=== PATIENT | male | born 1935 | race Caucasian/White ===

== ENCOUNTER 2017-09-07 16:17 | Inpatient (IN) ==
--- NOTE | 2017-09-07 22:41 | Internal Med History&Physical ---
<Brendan Mas - Last Filed: 09/08/17 00:29> Date of Encounter: 09/08/17 Time of Encounter: 08:00 Internal Medicine - H&P: HPI Chief complaint: R lower back pain Admitted From: Home Plans for Post Hospital Care: Home History of present illness: Mr. Sanders is a 81 year old male w/ pmh of CAD - CABG 2009, [place], [place], afib on coumadin, blood clots presents with 5/10 aching pain that starts on his right iliac crest and radiates to his paraspinal lumbar region. On 08/17/2016 patient was setting up a grill when he felt like he may have twisted his back. He woke up the next morning with this aching pain. Pain is relieved with 2 tylenol at a time. Pain is positionally relieved by laying his left side, and extension of his lumbar. Pain is worsened with flexion and standing, and palpation. Patient has had similar pain previously when he has pulled muscles. 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 Patient is more concerned that the day this pain started patient had gross blood in his urine. He went to the ED and was given 'something for bladder infection" which resolved blood in his urine, but he's had occassional darkening of his urine and "bubbles". Patient does admit that he's been unable to control his urine for awhile. He sleeps wtih jars nex to his bed to urinate in, and a lot of times he urinates without knowing it. Patient denies confusion , chest pain, sob, lower edema swelling, mid back pain, saddle anesthesia, numbness or tingling in lower extremities. Past Med Surg Social Fam HX - Past Medical History Medical history: atrial fibrillation, cancer, coronary artery disease, DVT, diabetes, hyperlipidemia, hypertension, kidney stones, syncope, TIA, other Psychiatric history: no psych history - Past Surgical History Surgical History: coronary bypass (CABG), herniorrhaphy, other - Social History Smoking Status: Former smoker Smokeless Tobacco Status: Yes (occasional "snuff") Alcohol use: none Drug use: none - Family History Mother Living Status: Hx Family Cardiac Disorders: Yes ([place]) Internal Medicine - H&P: Meds Allopurinol [Zyloprim 100 MG] 100 mg PO DAILY 09/07/17 [History] Aspirin [Lo-Dose Aspirin EC] 81 mg PO DAILY 09/07/17 [History] Atorvastatin Calcium [Lipitor] 10 mg PO HS 09/07/17 [History] Betamethasone Carmenza 0.1% Crm [Valisone 0.1%] 1 appl TP QMWF 09/07/17 [History] Cholecalciferol (D-3) [Vitamin D] 1,000 unit PO DAILY 09/07/17 [History] Diclofenac Sodium 4 gm TP BID PRN 09/07/17 [History] Finasteride [Proscar] 5 mg PO DAILY 09/07/17 [History] Naproxen Sodium [Aleve] 220 mg PO BID 09/07/17 [History] Nitroglycerin [Nitrostat] 0.4 mg SL PER PKG DI PRN 09/07/17 [History] Warfarin Sodium 1 mg PO PER PKG DI 09/07/17 [History] 3 Allergy/AdvReac Type Severity Reaction Status Date / Time Penicillins Allergy Rash Verified 09/07/17 13:52 All Systems PM: A 10-system review of systems was performed and is negative for pertinent findings except as documented above in the HPI. - Constitutional Constitutional: no chills, no fever(s), no falls, no lethargy, no malaise, no night sweats, no weakness, no weight gain, no weight loss - EENT Eyes: no change in vision, no discharge, no pain, no photophobia Ears: no ear discharge, no ear pain, no tinnitus Nose, mouth and throat: no dysphagia, no nasal discharge, no neck pain, no sore throat - Cardiovascular Cardiovascular ROS IM: no chest pain, no claudication, no diaphoresis, no dyspnea, no dyspnea on exertion, no edema, no irregular heart rhythm, no lightheadedness, no orthopnea, no palpitations, no paroxysmal nocturnal dyspnea , no syncope - Respiratory Respiratory: no cough, no dyspnea, no hemoptysis, no dyspnea on exertion, no wheezing, no pain on inspiration, no chest congestion, no excessive phlegm production, no change in phlegm color, no pain with cough - Gastrointestinal Gastrointestinal: no abdominal pain, no belching, no bloating, no change in bowel habits, no change in stool character, no coffee ground emesis, no constipation, no cramping, no diarrhea, no dyspepsia, no dysphagia, no hematemesis, no hematochezia, no melena, no nausea, no vomiting - Genitourinary Genitourinary ROS male: dysuria, hematuria, urinary frequency, urinary incontinence, no difficulty urinating, no flank pain, no genital lesions, no genital pain, no scrotal swelling, no testicular mass - Musculoskeletal Musculoskeletal ROS IM: no numbness, no tingling - Integumentary Integumentary IM: no rash, no unusual bruising - Neurological Neurological ROS: no confusion, no convulsions, no focal weakness, no numbness, no tingling, no tremor(s) - Hematologic/Lymphatic Hematologic/Lymphatic: no easy bruising - Constitutional Vitals: Temp Pulse Resp BP Pulse Ox 97.9 F 71 17 110/66 95 09/07/17 22:00 09/07/17 22:00 09/07/17 22:00 09/07/17 22:00 09/07/17 22:00 General appearance: Present: A&O X 3, pleasant, no acute distress, answers questions appropriately Exam: hard of hearing - Head Head exam: Present: atraumatic, normocephalic - Eye Eye exam: Present: PERRL, conjuntiva pink, sclera anicteric Pupils: Present: PERRL - Neck Neck exam general surgery: Present: supple, trachea midline. Absent: lymphadenopathy - Respiratory Respiratory exam: Present: CTAB. Absent: accessory muscle use, rales, rhonchi, wheezes - Cardiovascular Cardiovascular exam: Present: RRR. Absent: diastolic murmur, distant heart sounds, gallop, irregular rhythm, rubs, systolic murmur - GI/Abdominal GI/Abdominal exam: Present: normal bowel sounds, soft, no peritoneal signs. Absent: distended, firm, guarding, hernia, hepatomegaly, hyperactive bowel sounds, hypoactive bowel sounds, pulsatile mass, rebound, rigid, splenomegaly, tenderness - Extremities Exam Extremities exam: Present: warm, radial pulses palpable and symmetrical. Absent : calf tenderness, cyanotic, pedal edema - Back Exam Back exam: Present: paraspinal tenderness. Absent: CVA tenderness (L), CVA tenderness (R) Additional comments: straight leg raise negative - Neurological Exam Neurological exam: Present: CN II-XII intact, oriented X3, no focal deficits. Absent: pronater drift, facial droop, speech deficit - Skin Skin exam: Present: dry, intact Internal Med - H&P Results - Labs CBC & Chem 7: 09/07/17 23:08 09/07/17 23:08 - Assessment and plan (1) Strain of lumbar region Current Visit: Yes Status: Inactive Assessment and plan: Most likely due to strained paraspinal muscle. Patient does have urinary incontinence but this is chronic, patient does not have numbness or tingling saddle or lower extremities. very unlikely cauda equina. CT was taken in ED which showed endplate deformities involving L4 and L5, and inferior endplate deformity at L1. Patient showed me paperwork from previous hospitalization at [facility] which had a CT that reported the same finding. ED consulted dr. márquez. - tylenol for pain control - inhaled calcitonin for treatment of vertebral compression fractures not available through [email or web address]; discuss with pharmacy in the AM Qualifiers: Encounter type: initial encounter Qualified Code(s): S39.012A - Strain of muscle, fascia and tendon of lower back, initial encounter (2) Urinary incontinence Current Visit: Yes Status: Acute Assessment and plan: Ordered U/A, will further workup. Qualifiers: Qualified Code(s): R32 - Unspecified urinary incontinence (3) Afib Current Visit: Yes Status: Acute Assessment and plan: chronic afib, currently controlled. Patient is not on rate or rhythm control. Patient is anticoagulated, INR is therapeutic at 2.3 Qualifiers: Qualified Code(s): I48.2 - Chronic atrial fibrillation (4) Hyperlipidemia Current Visit: Yes Status: Acute Assessment and plan: controlled, continue home statin Qualifiers: Qualified Code(s): E78.5 - Hyperlipidemia, unspecified (5) Gout Current Visit: Yes Status: Acute Assessment and plan: continue home Rx Qualifiers: Qualified Code(s): M10.9 - Gout, unspecified (6) CAD (coronary artery disease) Current Visit: Yes Status: Acute Assessment and plan: Per chart review patient had CABG in 2009. Qualifiers: Qualified Code(s): I25.10 - Atherosclerotic heart disease of [place] coronary artery without angina pectoris (7) Goals of care, counseling/discussion Current Visit: Yes Status: Acute Assessment and plan: Discussed goals of care with patient. Patient states that he clearly understands that he does not want aggressive treatment in the setting of cardiac arrest or respiratory failure. Code status changed to DNR/DNI/CCA - Time Spent With Patient Total time spent is greater than 50% in coordination of care (as documented) at patient's floor/unit and/or counseling patient: <Abundio Galvan P - Last Filed: 09/08/17 07:59> Date of Encounter: 09/07/17 Time of Encounter: 23:00 Internal Medicine - H&P: HPI History of present illness: Mr. Sanders is a 81 year old male All Systems PM: A 10-system review of systems was performed and is negative for pertinent findings except as documented above in the HPI. - Constitutional Vitals: Temp Pulse Resp BP Pulse Ox 97.9 F 71 17 110/66 95 09/07/17 22:00 09/07/17 22:00 09/07/17 22:00 09/07/17 22:00 09/07/17 22:00 Internal Med - H&P Results - Labs CBC & Chem 7: 09/08/17 07:07 09/08/17 07:07 Labs: Short CBC 09/07/17 09/08/17 Range/Units 23:08 07:07 WBC 6.2 7.5 (4.3-11.1) K/mcL Hgb 16.5 16.9 (12.9-16.9) g/dL Hct 46.6 48.1 (37.5-50.1) % Plt Count 141 159 (140-400) K/mcL Neutrophils # 3.9 4.5 (1.6-8.9) K/mcL BMP 09/07/17 09/08/17 23:08 07:07 Sodium 138 143 Potassium 4.1 4.5 Chloride 106 109 H Carbon Dioxide 26 25 BUN 13 15 Creatinine 0.83 0.91 Glucose 99 113 H Calcium 9.1 9.3 Liver Function 09/07/17 Range/Units 23:08 Total Bilirubin 1.3 H (0.3-1.0) mg/dL AST 14 (13-39) Units/L ALT 11 (7-52) Units/L Alkaline Phosphatase 98 (34-104) Units/L Albumin 3.7 (3.5-5.7) g/dL - Attending Attestation I performed a history and physical examination of the patient on 09/07/17 and discussed his management with the resident. I reviewed the residents note and agree with the documented findings and plan of care. Briefly, patient admitted as transfer from [place] for lumbar pain secondary to lumbar strain vs lumbar compression fracture. Orthopedic surgeon Dr. Márquez has been consulted and he recommends pain control and lumbar MRI. He is not in any distress. We will use tylenol for pain and consider intranasal calcitonin if compression fracture. We will make NPO after midnight if ortho wants to operate. - Assessment and plan (1) Strain of lumbar region Current Visit: Yes Status: Inactive Qualifiers: Encounter type: initial encounter Qualified Code(s): S39.012A - Strain of muscle, fascia and tendon of lower back, initial encounter (2) Urinary incontinence Current Visit: Yes Status: Acute Qualifiers: Qualified Code(s): R32 - Unspecified urinary incontinence (3) Afib Current Visit: Yes Status: Acute Qualifiers: Qualified Code(s): I48.2 - Chronic atrial fibrillation (4) Hyperlipidemia Current Visit: Yes Status: Acute Qualifiers: Qualified Code(s): E78.5 - Hyperlipidemia, unspecified (5) Gout Current Visit: Yes Status: Acute Qualifiers: Qualified Code(s): M10.9 - Gout, unspecified (6) CAD (coronary artery disease) Current Visit: Yes Status: Acute Qualifiers: Qualified Code(s): I25.10 - Atherosclerotic heart disease of [place] coronary artery without angina pectoris (7) Goals of care, counseling/discussion Current Visit: Yes Status: Acute - Time Spent With Patient Total time spent is greater than 50% in coordination of care (as documented) at patient's floor/unit and/or counseling patient:
[2017-09-07 23:23] LABS: Basophils % 0.3 %; Eosinophils # 0.2 K/mcL (0.0-0.6); Eosinophils % 3.4 %; Hematocrit 46.6 % (37.5-50.1); Hemoglobin 16.5 g/dL (12.9-16.9); Immature Granulocytes % 0.3 % (0-4); Lymphocytes # 1.7 K/mcL (0.6-4.6); Lymphocytes % 26.9 %; Mean Corpuscular HGB Conc 35.4 g/dL (31.6-35.5); Mean Corpuscular Hemoglobin 33.1 pg (28.0-33.3); Mean Corpuscular Volume 93.6 fL (83.0-100.0); Mean Platelet Volume 9.7 fL (9.4-12.4); Monocytes # 0.4 K/mcL (0.0-1.3); Monocytes % 6.3 %; Neutrophils # 3.9 K/mcL (1.6-8.9); Platelet Count 141 K/mcL (140-400); Red Blood Count 4.98 M/mcL (4.19-5.50); Segmented Neutrophils % 62.8 %
[2017-09-07 23:42] LABS: Alanine Aminotransferase 11 Units/L (7-52); Albumin 3.7 g/dL (3.5-5.7); Albumin/Globulin Ratio 1.2 (1.1-2.2); Alkaline Phosphatase 98 Units/L (34-104); Aspartate Amino Transferase 14 Units/L (13-39); BUN/Creatinine Ratio 16 (6-26); Bilirubin,Total 1.3 mg/dL (0.3-1.0); Blood Urea Nitrogen 13 mg/dL (8-23); Calcium 9.1 mg/dL (8.6-10.3); Carbon Dioxide 26 mEq/L (23-29); Chloride 106 mEq/L (98-107); Globulin 3.1 g/dL (2.4-3.5); Glucose 99 mg/dL (70-105); Osmolality,Calculated 286 (280-300); Potassium 4.1 mEq/L (3.5-5.1); Sodium 138 mEq/L (136-145); Total Protein 6.8 g/dL (6.4-8.9); eGFR For African Americans > 60 (> 60); eGFR For Non-African Americans > 60 (> 60)
[2017-09-08] MEDS ORDERED: Gadolinium Contrast Agent (WT Based) IV PRN (04:29)
[2017-09-08] MEDS: Acetaminophen 325 MG TABLET PO PRN (04:48)
[2017-09-08] MEDS ORDERED: Nitroglycerin 0.4 MG TAB.SUBL SL PRN ×2 (06:38→07:52)
[2017-09-08] MEDS ORDERED: Naloxone 0.4 MG/ML INJ IVP PRN (06:43)
[2017-09-08 07:27] LABS: Basophils % 0.4 %; Eosinophils # 0.3 K/mcL (0.0-0.6); Hematocrit 48.1 % (37.5-50.1); Hemoglobin 16.9 g/dL (12.9-16.9); Immature Granulocytes % 0.3 % (0-4); Lymphocytes % 27.2 %; Mean Corpuscular HGB Conc 35.1 g/dL (31.6-35.5); Mean Corpuscular Hemoglobin 33.1 pg (28.0-33.3); Mean Corpuscular Volume 94.1 fL (83.0-100.0); Mean Platelet Volume 9.8 fL (9.4-12.4); Monocytes # 0.5 K/mcL (0.0-1.3); Monocytes % 7.1 %; Neutrophils # 4.5 K/mcL (1.6-8.9); Platelet Count 159 K/mcL (140-400); Red Blood Count 5.11 M/mcL (4.19-5.50)
[2017-09-08 07:33] LABS: INR 2.5
[2017-09-08 07:36] LABS: Activated Partial Thrombo Time 37.8 Seconds (26.0-36.0)
[2017-09-08 07:47] LABS: BUN/Creatinine Ratio 16 (6-26); Blood Urea Nitrogen 15 mg/dL (8-23); Calcium 9.3 mg/dL (8.6-10.3); Carbon Dioxide 25 mEq/L (23-29); Chloride 109 mEq/L (98-107); Glucose 113 mg/dL (70-105); Osmolality,Calculated 298 (280-300); Potassium 4.5 mEq/L (3.5-5.1); Sodium 143 mEq/L (136-145); eGFR For African Americans > 60 (> 60); eGFR For Non-African Americans > 60 (> 60)
[2017-09-08] MEDS: Aspirin Enteric Coated 81 MG Tablet PO SCH (11:16)
[2017-09-08] MEDS: Cholecalciferol (D-3) 1,000 UNIT TABLET PO SCH (11:16)
[2017-09-08] MEDS: Finasteride 5 MG TABLET PO SCH (11:16)
[2017-09-08] MEDS: Triamcinolone Acet 0.1% CRM 15 GM TUBE TP SCH ×3 (11:17→21:51)
[2017-09-08] MEDS: *HR* OxyCODONE/APAP 5/325 TABLET PO PRN ×2 (15:32→21:49)
[2017-09-08] MEDS: *HR* Warfarin 2 MG TABLET PO ONE ×2 (17:09→19:42)
--- NOTE | 2017-09-08 17:20 | Spinal Consult Note ---
Date of Encounter: 09/08/17 Time of Encounter: 17:18 Assessment and Plan (1) Osteopenia Current Visit: Yes Status: Chronic Qualifiers: Osteopenia location: spine Qualified Code(s): M85.88 - Other specified disorders of bone density and structure, other site (2) Vertebral compression fracture Current Visit: Yes Status: Acute On exam he is in moderate distress secondary to back pain worsened with movement. Afebrile vital signs stable. He has tenderness to palpation over the distal lumbar spine. He is neurovascularly intact with regard to his bilateral lower extremities. He has no clonus. His hips move symmetrically. He has limitation with forward flexion and extension of the lumbar spine which reproduces pain. Is no clubbing cyanosis or edema. MRI of the lumbar spine reveals acute vertebral compression fractures at L1, L4 , and L5. The L4 and L5 fractures mostly above the superior endplate. There are multilevel degenerative changes. Impression: 1) osteopenia 2) vertebral compression fractures L1, L4, L5. Plan: I had a long discussion with the patient. We discussed continued nonoperative treatment with bracing and or analgesics. We also discussed vertebral augmentation in the form of a kyphoplasty. The patient would like to proceed with kyphoplasty L1, L4, L5. He understands he will need medical optimization and clearance prior to any surgical intervention. He has a history of coronary artery bypass graft and is on blood thinners (Coumadin). He will need to get his INR more normalized as well as medical clearance prior to surgical intervention which we will plan for 09/10/2017. Risks benefits possible competitions and alternatives were fully discussed and the patient would like to proceed and appears to understand all options. History of Present Illness Chief complaint: Severe back pain HPI: Mr. Sanders is a 81 year old male Who experienced significant back pain after lifting a heavy object approximately 3 weeks ago. He was seen in the emergency department at [facility] was treated with analgesics and release. However, he is developed continuing and worsening pain and required admission to the hospital secondary to intractable back pain. He denies any radicular symptoms. He denies any fevers or chills. He had workup which revealed multiple lumbar compression fractures. We are asked to see for definitive management. Past Med Surg Social Fam HX - Past Medical History Medical history: atrial fibrillation, cancer, coronary artery disease, DVT, diabetes, hyperlipidemia, hypertension, kidney stones, syncope, TIA, other Psychiatric history: no psych history - Past Surgical History Surgical History: coronary bypass (CABG), herniorrhaphy, other - Social History Smoking Status: Former smoker Smokeless Tobacco Status: Yes (occasional "snuff") Alcohol use: none Drug use: none - Family History Mother Living Status: Hx Family Cardiac Disorders: Yes ([place]) Medications and Allergies Allopurinol [Zyloprim 100 MG] 100 mg PO DAILY 09/07/17 [History] Aspirin [Lo-Dose Aspirin EC] 81 mg PO DAILY 09/07/17 [History] Atorvastatin Calcium [Lipitor] 10 mg PO HS 09/07/17 [History] Betamethasone Carmenza 0.1% Crm [Valisone 0.1%] 1 appl TP QMWF 09/07/17 [History] Cholecalciferol (D-3) [Vitamin D] 1,000 unit PO DAILY 09/07/17 [History] Diclofenac Sodium 4 gm TP BID PRN 09/07/17 [History] Finasteride [Proscar] 5 mg PO DAILY 09/07/17 [History] Naproxen Sodium [Aleve] 220 mg PO BID 09/07/17 [History] Nitroglycerin [Nitrostat] 0.4 mg SL PER PKG DI PRN 09/07/17 [History] Fluorouracil [Carac] 1 appl TP DAILY 09/08/17 [History] GuaiFENesin/Dextromethorphan [Robitussin/DM] 10 ml PO Q4HR PRN 09/08/17 [History ] Warfarin [Coumadin] 2 mg PO [id number] 09/08/17 [History] Warfarin [Coumadin] 4 mg PO MO 09/08/17 [History] 3 Allergy/AdvReac Type Severity Reaction Status Date / Time Penicillins Allergy Rash Verified 09/07/17 13:52 Results - Labs Result Diagrams: 09/08/17 07:07 09/08/17 07:07 Labs: Abnormal lab results PT 28.0 Seconds (9.4-12.1) H 09/08/17 07:07 APTT 37.8 Seconds (26.0-36.0) H 09/08/17 07:07 Chloride 109 mEq/L (98-107) H 09/08/17 07:07 Glucose 113 mg/dL (70-105) H 09/08/17 07:07 POC Glucose 102 mg/dL (70-99) H 09/08/17 11:28 Total Bilirubin 1.3 mg/dL (0.3-1.0) H 09/07/17 23:08 H & H 09/07/17 09/08/17 Range/Units 23:08 07:07 Hgb 16.5 16.9 (12.9-16.9) g/dL Hct 46.6 48.1 (37.5-50.1) % All other labs normal. Consult Discharge Plan - Plan [facility]errals: [facility] [Primary Care Provider] - 09/10/17 11:30 am
[2017-09-08] MEDS ORDERED: Warfarin perPT PO SCH (18:00)
[2017-09-08] MEDS: 0.9 % Sodium Chloride 1,000 ML IVC SCH ×2 (19:42→21:51)
--- NOTE | 2017-09-08 21:49 | Internal Med Progress Note ---
Date of Encounter: 09/08/17 Time of Encounter: 13:40 - Assessment and plan (1) Vertebral compression fracture Current Visit: Yes Status: Acute Assessment and plan: Presents with subacute onset of right-sided lumbar pain. MRI lumbar spine shows acute L1, L4 and L5 superior endplate compression fractures, moderate to severe central spinal canal stenosis at L4/5. Pain control with when necessary oral oxycodone and Tylenol. Case discussed with spine surgery, recommend kyphoplasty after cardiac clearance. Recent echocardiogram shows preserved ejection fraction. Hold Coumadin for now. Will consult cardiology for further recommendations. (2) Afib Current Visit: Yes Status: Chronic Assessment and plan: Currently rate controlled. Not on rate control medications at home. Hold anticoagulation with Coumadin. Qualifiers: Atrial fibrillation type: paroxysmal Qualified Code(s): I48.0 - Paroxysmal atrial fibrillation (3) Hyperlipidemia Current Visit: Yes Status: Chronic Assessment and plan: Continue statin. Qualifiers: Hyperlipidemia type: unspecified Qualified Code(s): E78.5 - Hyperlipidemia , unspecified (4) Gout Current Visit: Yes Status: Chronic Qualifiers: Gout site: unspecified site Gout etiology: unspecified cause Chronicity: chronic Presence of tophus: without tophus Qualified Code(s): M1A.9XX0 - Chronic gout, unspecified, without tophus (tophi) (5) CAD (coronary artery disease) Current Visit: Yes Status: Chronic Assessment and plan: Patient has good functional capacity, active lifestyle at baseline. Continue aspirin, statin. Telemetry monitoring. Cardiology consulted for preop clearance. Qualifiers: Coronary Disease-Associated Artery/Lesion type: bypass graft [place] vs. transplanted heart: [place] heart Associated angina: without angina Qualified Code(s): I25.810 - Atherosclerosis of coronary artery bypass graft(s) without angina pectoris - Time Spent With Patient Total time spent is greater than 50% in coordination of care (as documented) at patient's floor/unit and/or counseling patient: - Subjective Interval history: Reports some improvement in right-sided back pain, but has pain on movement and getting out of bed; no weakness, paresthesias in legs, urinary incontinence; no fever/chills, chest pain, shortness of breath; - Constitutional Vitals: Temp Pulse Resp BP Pulse Ox 98.6 F 73 16 113/64 92 09/08/17 19:29 09/08/17 19:29 09/08/17 19:29 09/08/17 19:29 09/08/17 19:29 General appearance: Present: A&O X 3, answers questions appropriately - Respiratory Respiratory exam: Present: CTAB. Absent: accessory muscle use, rales, rhonchi, wheezes - Cardiovascular Cardiovascular exam: Present: RRR, +S1, +S2. Absent: diastolic murmur, gallop, rubs, systolic murmur - GI/Abdominal GI/Abdominal exam: Present: normal bowel sounds, soft, no peritoneal signs. Absent: distended, tenderness - Extremities Exam Extremities exam: Present: full ROM - Back Exam Back exam: Present: tenderness (no midline tenderness) Internal Medicine: Result - Labs CBC & Chem 7: 09/08/17 07:07 09/08/17 07:07 Labs: Short CBC 09/07/17 09/08/17 Range/Units 23:08 07:07 WBC 6.2 7.5 (4.3-11.1) K/mcL Hgb 16.5 16.9 (12.9-16.9) g/dL Hct 46.6 48.1 (37.5-50.1) % Plt Count 141 159 (140-400) K/mcL Neutrophils # 3.9 4.5 (1.6-8.9) K/mcL BMP 09/07/17 09/08/17 23:08 07:07 Sodium 138 143 Potassium 4.1 4.5 Chloride 106 109 H Carbon Dioxide 26 25 BUN 13 15 Creatinine 0.83 0.91 Glucose 99 113 H Calcium 9.1 9.3 Liver Function 09/07/17 Range/Units 23:08 Total Bilirubin 1.3 H (0.3-1.0) mg/dL AST 14 (13-39) Units/L ALT 11 (7-52) Units/L Alkaline Phosphatase 98 (34-104) Units/L Albumin 3.7 (3.5-5.7) g/dL - ABG Interpretation ABG results: PT/INR, D-dimer PT 28.0 Seconds (9.4-12.1) H 09/08/17 07:07 - Impressions Impressions Lumbar Spine MRI 09/08/17 04:29 IMPRESSION: 1. Acute L1 superior and inferior endplate compression fracture, as well as an acute L4 superior endplate compression fracture with approximately 50% loss in vertebral body height at these levels. There is also an acute L5 superior endplate compression fracture with approximately 60% loss of vertebral body height. 2. Moderate-severe central spinal canal stenosis at L4-L5. Moderate central spinal canal narrowing at L3-L4. 3. Multilevel foraminal narrowing, as above. D/ / 09/08/2017 11:14:58 Brian Fitzgerald MD / [facility] Interpreting Provider: Brian Fitzgerald MD Consult Discharge Plan - Plan Referrals: [facility],PCP [Primary Care Provider] - 09/10/17 11:30 am
[2017-09-09] MEDS: *HR* OxyCODONE/APAP 5/325 TABLET PO PRN ×3 (05:20→20:54)
[2017-09-09 06:07] LABS: INR 2.7; Prothrombin Time 29.2 Seconds (9.4-12.1)
[2017-09-09] MEDS: Aspirin Enteric Coated 81 MG Tablet PO SCH (09:08)
[2017-09-09] MEDS: Cholecalciferol (D-3) 1,000 UNIT TABLET PO SCH (09:08)
[2017-09-09] MEDS: Finasteride 5 MG TABLET PO SCH (09:09)
[2017-09-09] MEDS ORDERED: Regadenoson 0.4 MG/5 ML SYRINGE IVP ONE (12:15)
[2017-09-09] MEDS ORDERED: *HR* Phytonadione 5 MG TABLET PO ONE (15:14)
--- NOTE | 2017-09-09 16:11 | Cardiology Consult Note ---
Date of Encounter: 09/09/17 Time of Encounter: 16:09 Assessment and Plan (1) CAD (coronary artery disease) Current Visit: Yes Status: Chronic Hx of CAD with CABG 8 years ago not very active without any recent cardiac testing. Stress test reveals area of reversible ischemia, a diagnostic LHC is reasonable for risk stratification prior to surgery. R/B/A d/w patient and he agrees to proceed. If surgery is emergent patient may proceed without any further testing. Qualifiers: Coronary Disease-Associated Artery/Lesion type: bypass graft [place] vs. transplanted heart: [place] heart Associated angina: without angina Qualified Code(s): I25.810 - Atherosclerosis of coronary artery bypass graft(s) without angina pectoris Discussion w patient/family: The assessment and plan as outlined above was discussed with the patient and/or family members who expressed understanding and agreement. All questions were answered. Thank you for involving us in the care of your patient. Please call with any questions. History of Present Illness Consult date: 09/09/17 Consult reason: Cardiac clearance Chief complaint: SOB History of present illness: Mr. Sanders is a 81 year old male with h/o CAD, s/p CABG 2009, PPM, Afib on coumadin here after back injury to have surgery. Patient describes some SOB and is limited in his ADL making a functional capacity difficult to assess. He denies any chest pain but had non prior to his CABG 8 years ago. We discussed the need for a cardiac workup for further risk stratification. Past Med Surg Social Fam HX - Past Medical History Medical history: atrial fibrillation, cancer, coronary artery disease, DVT, diabetes, hyperlipidemia, hypertension, kidney stones, syncope, TIA, other Psychiatric history: no psych history - Past Surgical History Surgical History: coronary bypass (CABG), herniorrhaphy, other - Social History Smoking Status: Former smoker Smokeless Tobacco Status: Yes (occasional "snuff") Alcohol use: none Drug use: none - Family History Mother Living Status: Hx Family Cardiac Disorders: Yes ([place]) Medications and Allergies Allopurinol [Zyloprim 100 MG] 100 mg PO DAILY 09/07/17 [History] Aspirin [Lo-Dose Aspirin EC] 81 mg PO DAILY 09/07/17 [History] Atorvastatin Calcium [Lipitor] 10 mg PO HS 09/07/17 [History] Betamethasone Carmenza 0.1% Crm [Valisone 0.1%] 1 appl TP QMWF 09/07/17 [History] Cholecalciferol (D-3) [Vitamin D] 1,000 unit PO DAILY 09/07/17 [History] Diclofenac Sodium 4 gm TP BID PRN 09/07/17 [History] Finasteride [Proscar] 5 mg PO DAILY 09/07/17 [History] Naproxen Sodium [Aleve] 220 mg PO BID 09/07/17 [History] Nitroglycerin [Nitrostat] 0.4 mg SL PER PKG DI PRN 09/07/17 [History] Fluorouracil [Carac] 1 appl TP DAILY 09/08/17 [History] GuaiFENesin/Dextromethorphan [Robitussin/DM] 10 ml PO Q4HR PRN 09/08/17 [History ] Warfarin [Coumadin] 2 mg PO SUTUWETHFRSA 09/08/17 [History] Warfarin [Coumadin] 4 mg PO MO 09/08/17 [History] 3 Allergy/AdvReac Type Severity Reaction Status Date / Time Penicillins Allergy Rash Verified 09/07/17 13:52 All Systems Review: The remainder of the systems were reviewed and are negative Physical Examination Vital Signs, Last 4 Hours Temp Pulse Resp BP Pulse Ox 09/09/17 15:27 98.1 F 74 18 119/74 94 General: Conversant, No Apparent Distress HEENT: Atraumatic, Normocephaly, Mucus Membranes Moist Neck: No JVD, Normal carotid pulses Cardiac: Reg Rate and Rhythm, Normal S1 and S2, No Murmur Lungs: Normal Breath Sounds, No Wheeze, Rales, Rhonchi Neuro: Alert and responsive, No focal deficits noted Abdomen: Soft, Non-Tender Skin: No rashes noted on visualized skin Musculoskeletal: No Chest Wall Tenderness Extremities: No Clubbing, No Cyanosis, No Edema, Normal Pulses Results 09/08/17 07:07 09/08/17 07:07 Lab Results 09/09/17 05:09 INR 2.7 Consult Discharge Plan - Plan [facility] Provider[facility] - 09/10/17 11:30 am
--- NOTE | 2017-09-09 21:36 | Internal Med Progress Note ---
Date of Encounter: 09/09/17 Time of Encounter: 11:30 - Assessment and plan (1) Vertebral compression fracture Current Visit: Yes Status: Acute Assessment and plan: Presents with subacute onset of right-sided lumbar pain. MRI lumbar spine shows acute L1, L4 and L5 superior endplate compression fractures, moderate to severe central spinal canal stenosis at L4/5. Pain control with when necessary oral oxycodone and Tylenol. spine surgery on board, recommend kyphoplasty after cardiac clearance. Recent echocardiogram shows preserved ejection fraction. Hold Coumadin for now. Cardiology consulted , recommend stress testing- abnormal with an area of inferolateral ischemia; plan for [facility]; (2) Afib Current Visit: Yes Status: Chronic Assessment and plan: Currently rate controlled. Not on rate control medications at home. Hold anticoagulation with Coumadin. Qualifiers: Atrial fibrillation type: paroxysmal Qualified Code(s): I48.0 - Paroxysmal atrial fibrillation (3) Hyperlipidemia Current Visit: Yes Status: Chronic Qualifiers: Hyperlipidemia type: unspecified Qualified Code(s): E78.5 - Hyperlipidemia , unspecified (4) Gout Current Visit: Yes Status: Chronic Qualifiers: Gout site: unspecified site Gout etiology: unspecified cause Chronicity: chronic Presence of tophus: without tophus Qualified Code(s): M1A.9XX0 - Chronic gout, unspecified, without tophus (tophi) (5) CAD (coronary artery disease) Current Visit: Yes Status: Chronic Assessment and plan: Continue aspirin, statin. Telemetry monitoring. Cardiology consulted for preop clearance. Qualifiers: Coronary Disease-Associated Artery/Lesion type: bypass graft [place] vs. transplanted heart: [place] heart Associated angina: without angina Qualified Code(s): I25.810 - Atherosclerosis of coronary artery bypass graft(s) without angina pectoris - Time Spent With Patient Total time spent is greater than 50% in coordination of care (as documented) at patient's floor/unit and/or counseling patient: - Subjective Interval history: denies new complaints; had stress test done today; no chest pain, palpitations, dyspnea; back pain improving; - Constitutional Vitals: Temp Pulse Resp BP Pulse Ox 97.7 F 61 14 114/67 93 09/09/17 19:41 09/09/17 19:41 09/09/17 19:41 09/09/17 19:41 09/09/17 19:41 General appearance: Present: A&O X 3, answers questions appropriately - Respiratory Respiratory exam: Present: CTAB. Absent: accessory muscle use, rales, rhonchi, wheezes - Cardiovascular Cardiovascular exam: Present: RRR, +S1, +S2. Absent: diastolic murmur, gallop, rubs, systolic murmur - GI/Abdominal GI/Abdominal exam: Present: normal bowel sounds, soft, no peritoneal signs. Absent: distended, tenderness Internal Medicine: Result - Labs CBC & Chem 7: 09/08/17 07:07 09/08/17 07:07 - ABG Interpretation ABG results: PT/INR, D-dimer PT 29.2 Seconds (9.4-12.1) H 09/09/17 05:09 Consult Discharge Plan - Plan Referrals: [facility],PCP [Primary Care Provider] - 09/10/17 11:30 am
[2017-09-10] MEDS: Acetaminophen 325 MG TABLET PO PRN (00:14)
[2017-09-10] MEDS: 0.9 % Sodium Chloride 1,000 ML IVC SCH ×3 (04:48→22:31)
[2017-09-10 06:09] LABS: INR 2.1; Prothrombin Time 23.2 Seconds (9.4-12.1)
[2017-09-10] MEDS: Finasteride 5 MG TABLET PO SCH (08:03)
[2017-09-10] MEDS: *HR* OxyCODONE/APAP 5/325 TABLET PO PRN ×2 (08:04→16:46)
[2017-09-10] MEDS: Cholecalciferol (D-3) 1,000 UNIT TABLET PO SCH (08:04)
[2017-09-10] MEDS: Aspirin Enteric Coated 81 MG Tablet PO SCH (08:04)
[2017-09-10] MEDS ORDERED: *HR* Phytonadione 5 MG TABLET PO ONE (09:27)
[2017-09-10 12:28] LABS: INR 1.8; Prothrombin Time 19.3 Seconds (9.4-12.1)
[2017-09-10] MEDS: Triamcinolone Acet 0.1% CRM 15 GM TUBE TP SCH ×2 (15:01→19:28)
[2017-09-10] MEDS: *HR* Heparin 5,000 UNIT/ML VIAL SQ SCH (16:46)
--- NOTE | 2017-09-10 19:41 | Internal Med Progress Note ---
Date of Encounter: 09/10/17 Time of Encounter: 12:45 - Assessment and plan (1) Vertebral compression fracture Current Visit: Yes Status: Acute Assessment and plan: Presents with subacute onset of right-sided lumbar pain. MRI lumbar spine shows acute L1, L4 and L5 superior endplate compression fractures, moderate to severe central spinal canal stenosis at L4/5. Pain control with when necessary oral oxycodone and Tylenol. spine surgery on board, recommend kyphoplasty after cardiac clearance. Recent echocardiogram shows preserved ejection fraction. continue to hold Coumadin for now. Cardiology consulted, recommend stress testing- abnormal with an area of inferolateral ischemia; LHC cancelled today due to INR>1.6; received Vit K and INR came down to 1.8; (2) Afib Current Visit: Yes Status: Chronic Assessment and plan: Currently rate controlled. Not on rate control medications at home. Hold anticoagulation with Coumadin. Qualifiers: Atrial fibrillation type: paroxysmal Qualified Code(s): I48.0 - Paroxysmal atrial fibrillation (3) Hyperlipidemia Current Visit: Yes Status: Chronic Qualifiers: Hyperlipidemia type: unspecified Qualified Code(s): E78.5 - Hyperlipidemia , unspecified (4) Gout Current Visit: Yes Status: Chronic Qualifiers: Gout site: unspecified site Gout etiology: unspecified cause Chronicity: chronic Presence of tophus: without tophus Qualified Code(s): M1A.9XX0 - Chronic gout, unspecified, without tophus (tophi) (5) CAD (coronary artery disease) Current Visit: Yes Status: Chronic Assessment and plan: Continue aspirin, statin. Telemetry monitoring. Cardiology consulted for preop clearance. Qualifiers: Coronary Disease-Associated Artery/Lesion type: bypass graft [place] vs. transplanted heart: [place] heart Associated angina: without angina Qualified Code(s): I25.810 - Atherosclerosis of coronary artery bypass graft(s) without angina pectoris - Time Spent With Patient Total time spent is greater than 50% in coordination of care (as documented) at patient's floor/unit and/or counseling patient: - Subjective Interval history: denies new complaints; back pain is better on lying down, worse with movements and standing up; LHC has been cancelled today due to high INR; no chest pain, palpitations, shortness of breath; - Constitutional Vitals: Temp Pulse Resp BP Pulse Ox 97.9 F 74 16 128/77 94 05/18/18 19:07 09/10/17 19:07 09/10/17 19:07 09/10/17 19:07 09/10/17 19:07 General appearance: Present: A&O X 3, answers questions appropriately - Respiratory Respiratory exam: Present: CTAB. Absent: accessory muscle use, rales, rhonchi, wheezes - Cardiovascular Cardiovascular exam: Present: RRR, +S1, +S2. Absent: diastolic murmur, gallop, rubs, systolic murmur Internal Medicine: Result - Labs CBC & Chem 7: 09/08/17 07:07 09/08/17 07:07 - ABG Interpretation ABG results: PT/INR, D-dimer PT 19.3 Seconds (9.4-12.1) H 09/10/17 12:09 - VTE Documentation of Mechanical Device: Intermittent pneumatic compression device Consult Discharge Plan - Plan [facility]: [facility] Provider[facility] - 09/10/17 11:30 am
[2017-09-11] MEDS: *HR* OxyCODONE/APAP 5/325 TABLET PO PRN ×3 (00:15→16:52)
[2017-09-11 06:07] LABS: INR 1.4; Prothrombin Time 15.5 Seconds (9.4-12.1)
[2017-09-11] MEDS: *HR* Heparin 5,000 UNIT/ML VIAL SQ SCH ×2 (06:11→17:00)
[2017-09-11] MEDS: 0.9 % Sodium Chloride 1,000 ML IVC SCH (06:12)
--- NOTE | 2017-09-11 08:19 | Event Note ---
Date of Encounter: 09/11/17 Time of Encounter: 08:00 - Cardiology Event Note Seen and examined. Plan for [facility] today, INR acceptable, for abnormal stress test. Alternatives, risks, and benefits discussed with patient, he is agreeable to proceed. Discussed with Dr. Mari Soto who agrees with plan. 09/09/17 Regadenoson Nuclear stress Impression: Pharmacologic stress ECG is non-diagnostic for ischemia due to baseline ST and T changes. Gated EF = 60%. Small sized, mild intensity, reversible inferolateral defect suggestive of ischemia.
[2017-09-11] MEDS ORDERED: Heparin 1,000 UNITS/500 mL 500 ML ONE (08:28)
[2017-09-11] MEDS ORDERED: *HR* Heparin 10,000 UNIT/10 ML VIAL ONE (08:28)
[2017-09-11] MEDS ORDERED: 0.9 % Sodium Chloride 1,000 ML ONE ×2 (08:28→08:36)
[2017-09-11] MEDS ORDERED: Nitroglycerin 1,000 MCG/10 ML VIAL IV ONE (08:28)
[2017-09-11] MEDS ORDERED: ISOVUE-370 200 ML INFUS..BTL IV ONE ×2 (08:28→10:55)
[2017-09-11] MEDS: Aspirin Enteric Coated 81 MG Tablet PO SCH (09:36)
[2017-09-11] MEDS: Cholecalciferol (D-3) 1,000 UNIT TABLET PO SCH (09:36)
[2017-09-11] MEDS: Finasteride 5 MG TABLET PO SCH (09:36)
[2017-09-11] MEDS ORDERED: *HR* Midazolam HCl 2 MG/2 ML VIAL ONE (10:35)
[2017-09-11] MEDS ORDERED: *HR* FentaNYL (PF) 100 MCG/2 ML VIAL ONE (10:35)
--- NOTE | 2017-09-11 10:42 | Pre-Sedation Evaluation ---
Pre-sedation evaluation - Pre-sedation checklist Date of procedure: 09/11/17 Procedure: left heart cath Recent Vitals: Last Vital Signs Temp 97.6 F 09/11/17 07:32 Pulse 69 09/11/17 07:32 Resp 16 09/11/17 07:32 BP 125/80 09/11/17 07:32 Pulse Ox 95 09/11/17 07:32 H&P (including ROS) documented in medical record: Yes Previous reaction to sedatives/anesthetics: No Dietary Status: NPO after Midnight Airway Assessment: Patient can open mouth completely, TMJ function normal, Micrognathia (under-bite, receding chin) absent, Neck with adequate range of motion Dentition: dentures removed Possible difficult airway: No ASA Classification *see protocol: CLASS II-Mild systemic disease Plan of Care: Pt appropriate candidate for procedure/moderate/conscious sedation , Risks/benefits of procedure/sedation discussed w/ patient/family
--- NOTE | 2017-09-11 11:47 | Event Note ---
Date of Encounter: 09/11/17 Time of Encounter: 11:45 - Cardiology Event Note Cardiac catheterization completed this AM. Has 3VCAD with 3/3 bypass grafts patent. EF 50%. Pt can proceed with planned surgical procedure with no further cardiac testing per ACC/AHA guidelines. Pt is at intermediate risk for perioperative cardiovascular complications. Resume coumadin when safe from surgical standpoint for atrial fibrillation.
--- NOTE | 2017-09-11 11:58 | Invasive Diagnostic Lab Proc ---
Name: Ruddy Sanders Date of Study: 09/11/2017 Date: 1935 Ht: 76.0in Medical Record#: [id number] Age: 81 Wt: 253.97lb Gender: Male BSA: 2.45 Order #: [id number] BMI: 30.93 Physicians Procedure Physician: Mari Soto MD, [facility] Referring MD: Referring MD: Staff Name Position Time In Lety Landin RN Monitor 10:42 AM Carmen Sinclair RT (R) Scrub 10:42 AM Nehemiah Santoro RN Monitor 10:42 AM Indications Indication Abnormal Test - Stress Preop clearance Procedures Performed Procedure L HRT ART/GRFT ANGIO Pre-Procedure Checklist Informed consent is complete signed and on chart. H&P is on chart. ID band is on and ID verified with patient. Patient NPO for procedure The procedure was described for the patient and questions were answered. Blood Pressure: 120/68 ECG is on chart. Rhythm: Atrial Fibrillation Plan of Care Patient will tolerate the procedure without complications. Adequate level of comfort will be maintained. Hemodynamics will remain stable Patient will recover from procedure without complications. Respiratory function will be maintained. Cardiac rhythm will remain stable. Patient temperature will be maintained. Patient and/or family have verbalized understanding of the procedure. Patient Education Chief Complaint/Reason for Test: Cardiac Cath Developmental Category: Geriatric (65+ years) Developmentally Appropriate for Age: Yes Learning Barriers: None Education Needs: Procedure Education Method: Verbal Information Taught: Cardiac Cath Educational Evaluation: Able to repeat information Intravenous Access Time IV Size Location DC'd Fluid/Drip Rate Units RN 10:51 AM 20g 1 /" Patent On Arrival Lt Antecubital 0.9NaCl ml/hr Allergies Penicillins PCN Vital Signs Time BP (mmHg) HR (bpm) O2 Sat. RR (bpm) LOC / % 5 = Fully awake and oriented or at pre-proc level 10:43 AM / % 5 = Fully awake and oriented or at pre-proc level 10:43 AM / % 4 = Oriented but drowsy 10:58 AM / % 4 = Oriented but drowsy 10:41 AM 120 / 68 69 97 % 10:47 AM 135 / 92 75 97 % 10:51 AM 132 / 82 57 93 % 10:57 AM 141 / 76 67 94 % 11:01 AM 122 / 87 69 96 % 11:06 AM 134 / 81 69 95 % 11:11 AM 127 / 78 66 94 % 11:16 AM 129 / 77 71 93 % 11:22 AM 134 / 80 76 96 % 11:13 AM / % 4 = Oriented but drowsy Procedural Medications Time Medication Dose Units Method Given By 10:43 AM Oxygen 2 L/min nasal cannula Nehemiah Santoro RN 10:47 AM Versed 1 mg Intravenous Nehemiah Santoro RN 10:47 AM Fentanyl 25 mcg Intravenous Nehemiah Santoro RN 11:03 AM Lidocaine 2% 18 ml Subcutaneous Mari Soto MD, [facility] 11:23 AM Fentanyl 25 mcg Intravenous Nehemiah Santoro RN ASA Classification: CLASS II- Mild systemic disease (i.e. well-controlled diabetes, hypertension, asthma, cigarette smoking) Nanette Score Preprocedure Postprocedure Activity 2- Moves 4 extremities sustained head lift Activity 2- Moves 4 extremities sustained head lift Circulation 2- SBP +/= 20 points of pre-anesthetic level Circulation 2- SBP +/= 20 points of pre-anesthetic level Consciousness 2- Awake and alert oriented x 3 Consciousness 2- Awake and alert oriented x 3 O2 Saturation 2- Able to maintain O2 satruation of 92% on room air O2 Saturation 2- Able to maintain O2 satruation of 92% on room air Respiratory 2- Able to deep breathe and cough well Respiratory 2- Able to deep breathe and cough well Total Score 10 Total Score 10 Contrast Agent: Isovue Diagnostic Contrast: 97 ml Total Contrast: 97 ml Fluoro Dose: 441 mGy Procedure Log Time Note Enter By 08:44 AM CathStat 10:40 AM Vitals capture started with the following parameters, Patient=Adult, Interval=5 min, Initial Uawzqbmw=762 mmHg, Deflation Rate=5 mmHg, Cuff placed on Right Arm 10:41 AM HR=69 bpm, EBVK=045/68 mmhg, SpO2=97.0 %, Comment=afib 10:42 AM Pt arrived to pharmaceutical laboratory technician 2 at 10:42 csmith 10:42 AM Lety Landin RN Position: Monitor Time in: 10:42 csmith 10:42 AM Carmen Sinclair RT (R) Position: Scrub Time in: 10:42 csmith 10:42 AM Nehemiah Santoro RN Position: Monitor Time in: 10:42 csmith 10:42 AM Patient charges- Angio tray pack, Navilyst 3mm J, Pulse Oximetry and ACIST tubing and transducer csmith 10:42 AM Case Delayed no, inpatient csmith 10:42 AM ASA Class CLASS II- Mild systemic disease (i.e. well-controlled diabetes, hypertension, asthma, cigarette smoking) csmith 10:42 AM Physician arrived 10:42 csmith 10:42 AM Meet and greet completed csmith 10:42 AM Sign in performed according to hospital policy. csmith 10:42 AM Procedure start : csmith :43 AM Time: : Oxygen on at 2 L/min per nasal cannula by Nehemiah Santoro RN csmith : AM Time: Patient comfortable and pain free: Yes csmith : AM Time: LOC: 5 = Fully awake and oriented or at pre-proc level csmith :47 AM Time: : Versed 1 mg Intravenous Given by Nehemiah Santoro RN scoates 10:47 AM HR=75 bpm, KOCN=533/92 mmhg, SpO2=97.0 %, Comment=afib : AM Time: :47 Fentanyl 25 mcg Intravenous Given by Nehemiah Santoro RN scoates 10:49 AM Hair removed from procedure site in procedure lab using clippers. Bilateral groin prepped with Chloraprep by Lety Landin RN, then patient was draped. Skin intact. csmith 10:51 AM Clinical Presentation: Stable angina scoates 10:51 AM HR=57 bpm, HHVY=430/82 mmhg, SpO2=93.0 %, Comment=afib 10:52 AM Recorded ECG: HR=65 Condition=Condition 1 10:53 AM Recorded ECG: HR=68 Condition=Condition 1 10:57 AM HR=67 bpm, LQZE=737/76 mmhg, SpO2=94.0 %, Comment=afib 10:58 AM Time: :43 Patient comfortable and pain free: Yes scoates 10:58 AM Time: 43LOC: 4 = Oriented but drowsy scoates 11:01 AM Time out performed according to hospital policy scoates 11:01 AM HR=69 bpm, HEDV=879/87 mmhg, SpO2=96.0 %, Comment=afib 11:02 AM Pressure channel 1 zeroed. 11:03 AM Time: 11:03 18 ml Lidocaine 2% to right groin Subcutaneous Given by Mari Soto MD, [facility] scoates 11:05 AM Access obtained by percutaneous puncture. 5Fr 10cm Terumo [place] sheath placed in right Femoral artery. [id number] scoates 11:05 AM 5Fr FL 4 catheter inserted over the wire DN scoates 11:06 AM LCA angiography performed in multiple views. scoates 11:06 AM Recorded Pressure: Ao, HR=70, Condition=Condition 1 (Aorta) Ao 102/67/85 11:06 AM HR=69 bpm, CEKO=549/81 mmhg, SpO2=95.0 %, Comment=afib 11:07 AM Catheter removed scoates 11:08 AM 5Fr FR 4 catheter inserted over the wire DN scoates 11:08 AM RCA angiography performed in multiple views. scoates 11:09 AM repositioning catheter scoates 11:10 AM SVG to the 1st Diagonal and Ramus angio performed in multiple views. scoates 11:10 AM repositioning catheter scoates 11:10 AM SVG to the RPDA angio performed in multiple views. scoates 11:10 AM Recorded Pressure: Ao, HR=68, Condition=Condition 1 (Aorta) Ao 107/30/80 11:11 AM Catheter removed scoates 11:11 AM 5Fr IM catheter inserted over the wire [id number] scoates 11:11 AM HR=66 bpm, UUIO=880/78 mmhg, SpO2=94.0 %, Comment=afib 11:13 AM Time: 10:58 Patient comfortable and pain free: Yes scoates 11:13 AM Time: 10:58LOC: 4 = Oriented but drowsy scoates 11:13 AM Left ESTEFANÍA to the LAD angio performed in multiple views. scoates 11:13 AM Catheter removed scoates 11:14 AM Pressure channel 1 zeroed. 11:14 AM Recorded Pressure: LV, HR=76, Condition=Condition 1 (Left Ventricle) LV 87/9/16 11:14 AM 5Fr Pigtail catheter inserted over the wire [facility] scoates 11:14 AM Catheter selectively placed in left ventricle scoates 11:15 AM Bolus angiogram of left Ventricle complete: 8 ml/sec for a total of 24 mls scoates 11:15 AM Recorded Pressure: LV, Ao, HR=66, Condition=Condition 1 (Left Ventricle) LV 98/20/26, (Aorta) Ao 101/68/86 11:15 AM Catheter removed scoates 11:16 AM HR=71 bpm, MTRK=331/77 mmhg, SpO2=93.0 % 11:17 AM Bolus angiogram of right Femoral complete: 4 ml/sec for a total of 7 mls scoates 11:17 AM Procedure completed at 11:17 scoates 11:17 AM Did you address MAKENZIE flow and Dominance? Yes scoates 11:19 AM Sign out completed: Radiation Dose 411 mGy Fluoro Time: 3.0 Isovue 370 - 200ml contrast 96.8 ml given by Mari Soto MD, [facility]. Complications: NoneCardiac Rehab Consult needed: NoConfirmed administered medications: Yes scoates 11:19 AM Isovue 370 - 200ml,2 Bottle(s) used. scoates 11:22 AM HR=76 bpm, YMUL=234/80 mmhg, SpO2=96 % 11:22 AM Arterial sheath pulled, Mynx closure device used and was Successful [id number] S/N. scoates 11:22 AM Estimated Blood Loss: minimal scoates 11:22 AM Post ECG Atrial Fibrillation scoates 11:23 AM Post Blood Pressure 134/80 scoates 11:23 AM 11:23 Post Pulses Bilateral DP & PT 1+ scoates 11:23 AM Time: 11:23 Fentanyl 25 mcg Intravenous Given by Nehemiah Santoro RN scoates 11:28 AM Coronary Dominance: right scoates 11:30 AM Time: 11:13LOC: 4 = Oriented but drowsy scoates 11:30 AM Information taught Cardiac Cath and Mynx scoates 11:31 AM Education needs Procedure, Plan of Care, and Responsibilities of Patient in Care scoates 11:31 AM Learning barriers :None scoates 11:32 AM Education Methods Verbal scoates 11:32 AM Education evaluation Able to repeat information scoates 11:33 AM Site status No bleeding/hematoma - Rt Groin as reported by Carmen Sinclair RT (R) at 11:32 scoates 11:33 AM Opsite applied scoates 11:33 AM Report given to Ivet JACINTO Pt taken to Room #44. 11:33 scoates 11:36 AM Plavix, Effient or Brilinta given No scoates 11:36 AM Delay to floor No scoates 11:36 AM Patient out of room: 11:36 scoates 11:36 AM family not here at this time, patient states that he doesnt want us to call them, he states he will call them later scoates 11:36 AM Complications: None scoates 11:37 AM Fluoro Time: 3 scoates 11:37 AM Isovue 370 - 200ml contrast 97 ml given by . scoates 11:37 AM Radiation Dose 441 mGy scoates 11:38 AM Lesion found in Proximal RCA. Pre Stenosis: 80 Pre MAKENZIE Flow: scoates 11:38 AM Lesion found in Mid RCA. Pre Stenosis: 40 Pre MAKENZIE Flow: scoates 11:38 AM Lesion found in Distal RCA. Pre Stenosis: 100 Pre MAKENZIE Flow: scoates 11:38 AM Lesion found in LMCA. Pre Stenosis: 40 Pre MAKENZIE Flow: scoates 11:38 AM Lesion found in Proximal LAD. Pre Stenosis: 95 Pre MAKENZIE Flow: scoates 11:38 AM Lesion found in Mid LAD. Pre Stenosis: 100 Pre MAKENZIE Flow: scoates 11:38 AM Lesion found in Proximal Circumflex. Pre Stenosis: 30 Pre MAKENZIE Flow: scoates 11:39 AM Lesion found in Lat. 1st Marginal. Pre Stenosis: 99 Pre MAKENZIE Flow: scoates 11:39 AM Lesion found in Ramus. Pre Stenosis: 99 Pre MAKENZIE Flow: scoates 11:39 AM Left Main Coronary Artery with 40% stenosis scoates 11:39 AM Mid/Distal Left Anterior Descending Coronary Artery and diagonal branches with 100% stenosis. If graft is supplying this area, 0 % stenosis scoates 11:40 AM Proximal Left Anterior Descending Coronary Artery with 95% stenosis. If graft is supplying this territory, 0 % stenosis. scoates 11:40 AM Circumflex, Obtuse Marginal, Left Posterior Descending, and Left Posterolateral Coronary Arteries with 99 % stenosis. If graft is supplying this area, 0 % stenosis scoates 11:40 AM Right Coronary, Right Posterior Descending Arteries with Right Posterolateral and Acute Marginal branches with 100 % stenosis. If graft is supplying this area, 0 % stenosis scoates 11:40 AM Ramus with 99% stenosis. If graft is supplying this area, 0 % stenosis scoates Complications Complication None None Hemodynamics Pressures Site Systolic/A Wave Diastolic/V Wave Mean AO 102 67 85 AO 107 30 80 LV 87 9 16 LV 98 20 26 AO 101 68 86 Post Procedure Information Blood Pressure: 134/80 mmHg Rhythm: Atrial Fibrillation Post procedural instructions were given Closure Device Time Device Success/Fail 09/11/2017 11:22:00 AM MynxGrip Successful Site Checks Time Location Status Staff Sheath In? Note 11:32 AM Rt Groin No bleeding/hematoma Carmen Sinclair RT (R) Pulses Time Site Pre-Procedure Post-Procedure Note 09/11/2017 10:51:00 AM Bilateral DP & PT 1+ 11:23:00 AM Bilateral DP & PT 1+ Updated by Nehemiah Santoro RN on 09/11/2017 11:48:53 AM electronically signed on 09/11/2017 11:49:16 AM with status of Final
--- NOTE | 2017-09-11 15:15 | Internal Med Progress Note ---
Date of Encounter: 09/11/17 Time of Encounter: 15:12 - Assessment and plan (1) Vertebral compression fracture Current Visit: Yes Status: Acute Assessment and plan: Presents with subacute onset of right-sided lumbar pain. MRI lumbar spine shows acute L1, L4 and L5 superior endplate compression fractures, moderate to severe central spinal canal stenosis at L4/5. Pain control with when necessary oral oxycodone and Tylenol. spine surgery on board, recommend kyphoplasty after cardiac clearance. Recent echocardiogram shows preserved ejection fraction. continue to hold Coumadin for now. Cardiology consulted, recommend stress testing- abnormal with an area of inferolateral ischemia; [facility] done- 3 vessel CAD with 4/4 patent grafts from CABG; cleared with intermediate perioperative risk; (2) Afib Current Visit: Yes Status: Chronic Assessment and plan: Currently rate controlled. Not on rate control medications at home. Hold anticoagulation with Coumadin. Qualifiers: Atrial fibrillation type: paroxysmal Qualified Code(s): I48.0 - Paroxysmal atrial fibrillation (3) Hyperlipidemia Current Visit: Yes Status: Chronic Qualifiers: Hyperlipidemia type: unspecified Qualified Code(s): E78.5 - Hyperlipidemia , unspecified (4) Gout Current Visit: Yes Status: Chronic Qualifiers: Gout site: unspecified site Gout etiology: unspecified cause Chronicity: chronic Presence of tophus: without tophus Qualified Code(s): M1A.9XX0 - Chronic gout, unspecified, without tophus (tophi) (5) CAD (coronary artery disease) Current Visit: Yes Status: Chronic Assessment and plan: Continue aspirin, statin. Telemetry monitoring. Cardiology cleared patient for back surgery with intermediate risk after cardiac testing; Qualifiers: Coronary Disease-Associated Artery/Lesion type: bypass graft [place] vs. transplanted heart: [place] heart Associated angina: without angina Qualified Code(s): I25.810 - Atherosclerosis of coronary artery bypass graft(s) without angina pectoris - Time Spent With Patient Total time spent is greater than 50% in coordination of care (as documented) at patient's floor/unit and/or counseling patient: - Subjective Interval history: continues to have back pain on movement and standing up, controlled with oral pain meds; underwent heart cath today, no further intervention; awaiting back surgery; - Constitutional Vitals: Temp Pulse Resp BP Pulse Ox 97.6 F 69 16 125/80 95 09/11/17 07:32 09/11/17 07:32 09/11/17 07:32 09/11/17 07:32 09/11/17 07:32 General appearance: Present: A&O X 3, answers questions appropriately - Respiratory Respiratory exam: Present: CTAB. Absent: accessory muscle use, rales, rhonchi, wheezes - Cardiovascular Cardiovascular exam: Present: RRR, +S1, +S2. Absent: diastolic murmur, gallop, rubs, systolic murmur Internal Medicine: Result - Labs CBC & Chem 7: 09/08/17 07:07 09/08/17 07:07 - ABG Interpretation ABG results: PT/INR, D-dimer PT 15.5 Seconds (9.4-12.1) H 09/11/17 05:08 - VTE Documentation of Mechanical Device: Intermittent pneumatic compression device Consult Discharge Plan - Plan Referrals: DALY,PCP [Primary Care Provider] - 09/10/17 11:30 am
[2017-09-12] MEDS: *HR* OxyCODONE/APAP 5/325 TABLET PO PRN ×4 (00:20→22:25)
[2017-09-12] MEDS: 0.9 % Sodium Chloride 1,000 ML IVC SCH ×2 (00:47→13:07)
[2017-09-12] MEDS: *HR* Heparin 5,000 UNIT/ML VIAL SQ SCH ×2 (06:23→17:56)
[2017-09-12] MEDS: Aspirin Enteric Coated 81 MG Tablet PO SCH (08:24)
[2017-09-12] MEDS: Finasteride 5 MG TABLET PO SCH (08:24)
[2017-09-12] MEDS: Cholecalciferol (D-3) 1,000 UNIT TABLET PO SCH (08:24)
--- NOTE | 2017-09-12 13:43 | Anesthesia Evaluation PreOp ---
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 History: TIA Other Medical History: Diabetes Type II Alcohol Use: none Drug use: none Medications and Allergies Allopurinol [Zyloprim 100 MG] 100 mg PO DAILY 09/07/17 [History] Aspirin [Lo-Dose Aspirin EC] 81 mg PO DAILY 09/07/17 [History] Atorvastatin Calcium [Lipitor] 10 mg PO HS 09/07/17 [History] Betamethasone Carmenza 0.1% Crm [Valisone 0.1%] 1 appl TP QMWF 09/07/17 [History] Cholecalciferol (D-3) [Vitamin D] 1,000 unit PO DAILY 09/07/17 [History] Diclofenac Sodium 4 gm TP BID PRN 09/07/17 [History] Finasteride [Proscar] 5 mg PO DAILY 09/07/17 [History] Naproxen Sodium [Aleve] 220 mg PO BID 09/07/17 [History] Nitroglycerin [Nitrostat] 0.4 mg SL PER PKG DI PRN 09/07/17 [History] Fluorouracil [Carac] 1 appl TP DAILY 09/08/17 [History] GuaiFENesin/Dextromethorphan [Robitussin/DM] 10 ml PO Q4HR PRN 09/08/17 [History ] Warfarin [Coumadin] 2 mg PO [id number] 09/08/17 [History] Warfarin [Coumadin] 4 mg PO MO 09/08/17 [History] 3 Allergy/AdvReac Type Severity Reaction Status Date / Time Penicillins Allergy Rash Verified 09/07/17 13:52 - Meds/Allergy Pre-op Review Medications Reviewed: Yes Allergies Reviewed: Yes Beta Blockers on Current Med List: No Anesthesia Results - Labs 09/08/17 07:07 09/08/17 07:07 - Imaging EKG: report reviewed (SR) Additional studies: Cardiac Cath showed patent graft X3, EF 50% Anesthesia Exam Vital Signs/O2 Sat/Glucose, Most Current Temp Pulse Resp BP Pulse Ox 09/12/17 10:49 98 F 64 16 124/74 95 Height: 6'4 Weight: 254 lbs NPO (# of Hours): MN Pain Scale: 0 - HEENT Pupil (Motor): Pupils equal, EOMI Mallampati: III Denture Type: Upper: Complete, Partial Oral Opening: Less than or equal to 3 - MEASUREMENT AND SENSING TECHNICIAN LOC: Oriented MEASUREMENT AND SENSING TECHNICIAN Motor: Normal RUE, Normal LUE, Normal RLE, Normal LLE, Normal Face MEASUREMENT AND SENSING TECHNICIAN Sensory: Normal: RUE, LUE, RLE, LLE, Face - Cardiac Rhythm: Regular Murmur: None JVD: No Carotid Bruit: No - Pulmonary Breath Sounds: bilateral Clear Respiratory Effort: Symmetrical Anesthesia Assess/Plan ASA Score: 3 (CAD DM) Modified Alivia Scale for Level of Consciousness: Cooperative, oriented, and tranquil Anesthetic Plan: General Monitoring Plan: Standard Monitors Recovery Plan: PACU (Discussed GA, agrees to proceed)
--- NOTE | 2017-09-12 15:14 | Internal Med Progress Note ---
Date of Encounter: 09/12/17 Time of Encounter: 13:30 - Assessment and plan (1) Vertebral compression fracture Current Visit: Yes Status: Acute Assessment and plan: Presents with subacute onset of right-sided lumbar pain. MRI lumbar spine shows acute L1, L4 and L5 superior endplate compression fractures, moderate to severe central spinal canal stenosis at L4/5. Pain control with when necessary oral oxycodone and Tylenol. spine surgery on board, plan for kyphoplasty tomorrow; continue to hold Coumadin; Cardiology consulted, cleared with intermediate perioperative risk; (2) Afib Current Visit: Yes Status: Chronic Assessment and plan: Currently rate controlled. Not on rate control medications at home. Hold anticoagulation with Coumadin. Qualifiers: Atrial fibrillation type: paroxysmal Qualified Code(s): I48.0 - Paroxysmal atrial fibrillation (3) Hyperlipidemia Current Visit: Yes Status: Chronic Qualifiers: Hyperlipidemia type: unspecified Qualified Code(s): E78.5 - Hyperlipidemia , unspecified (4) Gout Current Visit: Yes Status: Chronic Qualifiers: Gout site: unspecified site Gout etiology: unspecified cause Chronicity: chronic Presence of tophus: without tophus Qualified Code(s): M1A.9XX0 - Chronic gout, unspecified, without tophus (tophi) (5) CAD (coronary artery disease) Current Visit: Yes Status: Chronic Assessment and plan: Continue aspirin, statin. Telemetry monitoring. Cardiology cleared patient for back surgery with intermediate risk after cardiac testing; Qualifiers: Coronary Disease-Associated Artery/Lesion type: bypass graft [place] vs. transplanted heart: [place] heart Associated angina: without angina Qualified Code(s): I25.810 - Atherosclerosis of coronary artery bypass graft(s) without angina pectoris - Time Spent With Patient Total time spent is greater than 50% in coordination of care (as documented) at patient's floor/unit and/or counseling patient: - Subjective Interval history: continues to have back pain on movement and standing up, controlled with oral pain meds; awaiting back surgery; no new complaints; - Constitutional Vitals: Temp Pulse Resp BP Pulse Ox 98 F 64 16 124/74 95 09/12/17 10:49 09/12/17 10:49 09/12/17 10:49 09/12/17 10:49 09/12/17 10:49 General appearance: Present: A&O X 3, answers questions appropriately - Respiratory Respiratory exam: Present: CTAB. Absent: accessory muscle use, rales, rhonchi, wheezes - Cardiovascular Cardiovascular exam: Present: RRR, +S1, +S2. Absent: diastolic murmur, gallop, rubs, systolic murmur Internal Medicine: Result - Labs CBC & Chem 7: 09/08/17 07:07 09/08/17 07:07 - ABG Interpretation ABG results: PT/INR, D-dimer PT 15.5 Seconds (9.4-12.1) H 09/11/17 05:08 - VTE Documentation of Mechanical Device: Intermittent pneumatic compression device Consult Discharge Plan - Plan [facility] - 09/10/17 11:30 am
[2017-09-13] MEDS: 0.9 % Sodium Chloride 1,000 ML IVC SCH (03:11)
[2017-09-13] MEDS: *HR* OxyCODONE/APAP 5/325 TABLET PO PRN (04:44)
[2017-09-13] MEDS: *HR* Heparin 5,000 UNIT/ML VIAL SQ SCH (04:48)
[2017-09-13] MEDS: Cholecalciferol (D-3) 1,000 UNIT TABLET PO SCH (09:12)
[2017-09-13] MEDS: Aspirin Enteric Coated 81 MG Tablet PO SCH (09:12)
[2017-09-13] MEDS: Finasteride 5 MG TABLET PO SCH (09:12)
[2017-09-13] MEDS: Triamcinolone Acet 0.1% CRM 15 GM TUBE TP SCH ×2 (09:34→15:42)
[2017-09-13] MEDS ORDERED: *HR* OxyCODONE/APAP 5/325 TABLET PO PRN (11:28)
[2017-09-13] MEDS ORDERED: Clindamycin 900 MG/50 ML 900 MG/50 ML IV.SOLN IVPB ONE ×2 (14:59→16:55)
[2017-09-13] MEDS ORDERED: *HR* FentaNYL (PF) 100 MCG/2 ML VIAL ONE (15:47)
[2017-09-13] MEDS ORDERED: Lidocaine -MPF 2% 2 ML VIAL ONE (15:49)
[2017-09-13] MEDS ORDERED: Dexamethasone 4 MG/ML VIAL ONE (15:49)
[2017-09-13] MEDS ORDERED: Ondansetron 4 MG/2 ML VIAL ONE (15:49)
[2017-09-13] MEDS ORDERED: *HR* Succinylcholine 200 MG/10 ML VIAL IVP ONE (15:49)
[2017-09-13] MEDS ORDERED: *HR* Propofol 200 MG/20 ML VIAL IVP ONE (15:50)
[2017-09-13] MEDS ORDERED: Isovue-300 50 ML VIAL IVP ONE (16:41)
[2017-09-13] MEDS ORDERED: *HR* PHENYLEPHRINE 1,000 MCG/10 ML SYRINGE IVP ONE (17:03)
[2017-09-13] MEDS ORDERED: EPHEDrine 50 MG/ML VIAL ONE (17:21)
--- NOTE | 2017-09-13 17:26 | Internal Med Progress Note ---
Date of Encounter: 09/13/17 Time of Encounter: 11:10 - Assessment and plan (1) Vertebral compression fracture Current Visit: Yes Status: Acute Assessment and plan: Presents with subacute onset of right-sided lumbar pain. MRI lumbar spine shows acute L1, L4 and L5 superior endplate compression fractures, moderate to severe central spinal canal stenosis at L4/5. Pain control with when necessary oral oxycodone and Tylenol. spine surgery on board, plan for kyphoplasty today; continue to hold Coumadin, to be restarted when cleared by Spine surgery; Cardiology consulted, cleared with intermediate perioperative risk; (2) Afib Current Visit: Yes Status: Chronic Assessment and plan: Currently rate controlled. Not on rate control medications at home. Hold anticoagulation with Coumadin. Qualifiers: Atrial fibrillation type: paroxysmal Qualified Code(s): I48.0 - Paroxysmal atrial fibrillation (3) Hyperlipidemia Current Visit: Yes Status: Chronic Qualifiers: Hyperlipidemia type: unspecified Qualified Code(s): E78.5 - Hyperlipidemia , unspecified (4) Gout Current Visit: Yes Status: Chronic Qualifiers: Gout site: unspecified site Gout etiology: unspecified cause Chronicity: chronic Presence of tophus: without tophus Qualified Code(s): M1A.9XX0 - Chronic gout, unspecified, without tophus (tophi) (5) CAD (coronary artery disease) Current Visit: Yes Status: Chronic Assessment and plan: Continue aspirin, statin. Telemetry monitoring. Cardiology cleared patient for back surgery with intermediate risk after cardiac testing; Qualifiers: Coronary Disease-Associated Artery/Lesion type: bypass graft [place] vs. transplanted heart: [place] heart Associated angina: without angina Qualified Code(s): I25.810 - Atherosclerosis of coronary artery bypass graft(s) without angina pectoris - Time Spent With Patient Total time spent is greater than 50% in coordination of care (as documented) at patient's floor/unit and/or counseling patient: - Subjective Interval history: denies new complaints; reports some back pain, requests for pain pill; awaiting back surgery; - Constitutional Vitals: Temp Pulse Resp BP Pulse Ox 98.1 F 62 16 124/74 96 09/13/17 12:02 09/13/17 12:02 09/13/17 12:02 09/13/17 12:02 09/13/17 12:02 General appearance: Present: A&O X 3, answers questions appropriately - Respiratory Respiratory exam: Present: CTAB. Absent: accessory muscle use, rales, rhonchi, wheezes - Cardiovascular Cardiovascular exam: Present: irregular rhythm, +S1, +S2. Absent: diastolic murmur, gallop, rubs, systolic murmur Internal Medicine: Result - Labs CBC & Chem 7: 09/08/17 07:07 09/08/17 07:07 - ABG Interpretation ABG results: PT/INR, D-dimer PT 15.5 Seconds (9.4-12.1) H 09/11/17 05:08 - VTE Documentation of Mechanical Device: Intermittent pneumatic compression device Consult Discharge Plan - Plan Referrals: DALY,PCP [Primary Care Provider] - 09/10/17 11:30 am
--- NOTE | 2017-09-13 18:48 | Orthopedic Operative Note ---
Date of procedure: 09/13/17 Pre-op diagnosis: Osteopenia, vertebral compression fractures Post-op diagnosis: same Operation/Findings: Kyphoplasty L1, L4, and L5: The patient was brought to the operative theater where successful endotracheal anesthesia was performed. The patient was given antibiotics prior to the start of the procedure. Compression boots and stockings were used for deep vein thrombosis. Patient was then turned prone on a well-padded Sj table. The back was prepped and draped in the usual sterile fashion. 2 C-arm fluorographic devices were brought into position such that simultaneous AP and lateral views centered over the involved L4 vertebral body could be performed. A stab incision was made over the superior-lateral aspect of the left L4 pedicle. We introduced a Jamshidi needle into the L4 vertebral body via a transpedicular route. We took biplanar images of the vertebral body using fluorography. The needle was found to be in appropriate position and within the confines of the L4 vertebral body. We then introduced a biopsy trocar and obtained a biopsy specimen of the L4 vertebral body. This was sent for pathologic evaluation. We then removed the biopsy trocar and introduced a Kyphon balloon. The balloon was insufflated to approximately 4 mL volume and subsequently deflated. The balloon was seen to expand within the confines of the vertebral body on biplanar fluorographic views. The balloon was then removed. We then inserted cement trochars and sequentially placed bone cement within the confines of the L4 vertebral body. We took intermittent fluorographic views which confirmed satisfactory placement of the cement. We moved to the L5 vertebral body and again accessed the left L5 pedicle via a transpedicular route with a Jamshidi needle. We subsequently inserted a Kyphon balloon and insufflated the balloon to a four mm volume. The balloon was deflated and subsequently we placed bone cement within the L5 vertebral body under fluorographic guidance. After completion of the cementation process, the trocar was removed. We then went to the L1 level and repeated the steps performed at L4-5. This included accessing the left L1 pedicle with a Jamshidi needle, insufflating the Kyphon balloon within the confines of the L1 vertebral body, subsequently deflating the balloon, and then placing sequentially bone cement within the confines of the L5 1 vertebral body. After the cementation process was completed the trocar was removed. We took final AP and lateral fluorographic of the vertebral augmentation performed at L1, L4, and L5. views. We then closed the stab incisions with 2-0 nylon suture. A Band-Aid was placed over each wound. The patient was turned supine on a hospital bed and extubated. All sponge instrument and needle counts were correct at the end of the procedure. The patient tolerated the procedure well without complications. Anesthesia: GETA Surgeon: Sudhir Saenz Jr Was there an assistant director of residence life present: No Estimated blood loss (cc): 12 Specimen: L4 vertebral biopsy Condition: stable Disposition: PACU
--- NOTE | 2017-09-13 19:57 | Anesthesia Evaluation Post Op ---
Date of Encounter: 09/13/17 Time of Encounter: 19:56 - Vital Signs Vital Signs: Vital Signs/O2 Sat, Most Current Temp Pulse Resp BP Pulse Ox 97.8 F 77 16 101/75 96 09/13/17 19:39 09/13/17 19:39 09/13/17 19:39 09/13/17 19:39 09/13/17 19:39 - Lungs Lungs: Clear Ascult./Percussion - Airway Airway: Non-obstructed - Cardiovascular Regular Rate - Mental Status Mental Status: Alert & Oriented, Answers Appropriately - Pain Pain Scale: 0 Pain Scale used: Numeric (1 - 10) - Nausea Vomiting Nausea Vomiting: Not Present - Hydration Hydration: Ice chips - Discharge PostOp Status: Transfer Patient to floor
[2017-09-13] MEDS ORDERED: Ringers Solution, Lactated 1,000 ML IVC SCH (21:02)
[2017-09-13] MEDS ORDERED: Ondansetron 4 MG/2 ML VIAL IVP PRN (21:02)
[2017-09-14] MEDS: *HR* OxyCODONE Immed Rel 5 MG TABLET PO PRN ×2 (01:08→09:15)
[2017-09-14] MEDS ORDERED: Clindamycin 900 MG/50 ML 900 MG/50 ML IV.SOLN IVPB ONE ×2 (01:47→10:15)
--- NOTE | 2017-09-14 08:39 | Orthopedics Progress Note ---
Date of Encounter: 09/14/17 Time of Encounter: 08:39 - Assessment and Plan (1) Status post kyphoplasty Status: Acute (2) Vertebral compression fracture Status: Chronic (3) Osteopenia Status: Chronic Qualifiers: Osteopenia location: spine Qualified Code(s): M85.88 - Other specified disorders of bone density and structure, other site Subjective Principal diagnosis: Osteopenia, vertebral compression fractures Interval history: Patient is status post Kyphoplasty L1, L4, and L5 on 09/13/[address] Saenz for Osteopenia, vertebral compression fractures The patient is without complaints. Afebrile vital signs are stable. Incision is clean dry and intact. Neurovascularly intact with regard to bilateral lower extremities. Fires all upper and lower extremity motor groups. Assessment: Stable postoperative. Plan: Reviewed postoperative restrictions and precautions. Patient verbalized understanding. Mobilize with therapy Continue analgesics as needed Discharge planning - awaiting therapy and medicine primary team recommendations Patient follow up as outpatient as scheduled. Objective Vital signs: Vital Signs Temp Pulse Resp BP Pulse Ox 09/14/17 08:00 97.7 F 67 16 113/65 95 09/14/17 04:38 97.8 F 75 18 97/58 93 09/13/17 23:09 98.3 F 76 18 119/78 93 09/13/17 22:50 97.7 F 84 17 129/75 95 09/13/17 21:50 97.5 F L 76 18 127/79 95 09/13/17 20:50 97.5 F L 72 18 122/76 96 09/13/17 20:20 97.4 F L 70 15 122/76 94 09/13/17 19:50 97.6 F 65 16 116/63 97 09/13/17 19:39 97.8 F 77 16 101/75 96 09/13/17 19:29 97.8 F 69 16 115/71 95 09/13/17 19:19 69 14 100/45 93 09/13/17 19:09 73 14 112/70 92 09/13/17 18:59 97.4 F L 70 16 111/60 98 09/13/17 12:02 98.1 F 62 16 124/74 96 Intake and Output 09/13/17 09/14/17 09/14/17 23:59 07:59 15:59 Intake Total 950 / 950 100 / 100 Output Total 587 / 587 400 / 400 Balance 363 / 363 -300 / -300 Intake: IV Fluids 950 / 950 0.9 % Sodium Chloride 1,000 ML 950 / 950 @ 75 mls/hr IVC .[id number] MEAGHAN Rx #:[id number] Oral 0 / 0 100 / 100 Output: Urine 575 / 575 400 / 400 Estimated Blood Loss Other: Blood Glucose* 94 118 - Labs CBC & BMP: 09/08/17 07:07 09/08/17 07:07 Labs: Abnormal lab results PT 15.5 Seconds (9.4-12.1) H 09/11/17 05:08 APTT 37.8 Seconds (26.0-36.0) H 09/08/17 07:07 Chloride 109 mEq/L (98-107) H 09/08/17 07:07 Glucose 113 mg/dL (70-105) H 09/08/17 07:07 POC Glucose 105 mg/dL (70-99) H 09/13/17 11:57 Total Bilirubin 1.3 mg/dL (0.3-1.0) H 09/07/17 23:08 - VTE Documentation of Mechanical Device: Intermittent pneumatic compression device Consult Discharge Plan - Plan Additional Instructions: Discharge Instructions: Lumbar Please call [facility] ([phone]), your Primary Care Physician, or report to the ER if you have any of the following symptoms: Fever greater that 101.5, increased pain/redness/drainage/odor for your incision site or any other concerning symptoms. ACTIVITY * May Shower * No Tub Baths * No lifting greater than 10 pounds * No Smoking * No Swimming * No off Ground Activities (Running, Climbing, Ladders, Horseback Riding) * No Driving * Wear Back Brace when up walking if lumbar fusion done MEDICATIONS: Upon discharge resume your home medications. Take all the medications as prescribed. Take a stool softener if taking narcotic pain medications. Stool softeners are only effective if you drink enough fluids. Drink 6-8 glass of water or fluids a day, unless this is not allowed for another health problem. Despite using stool softeners, if you haven't had a bowel movement in 3 days, please switch to a gentle laxative. Gentle laxatives are sold over the counter. You should have a bowel movement within 24 hours, if not call the office. You will be discharged from the hospital with a prescription for pain medication. You are encouraged to decrease the use of narcotic pain medication as tolerated. Should you require a refill, please call the office. It is best to call 48-72 hours in advance of needing a prescription refill so you don't run out of medication. WOUND CARE: Remove Dressing Tomorrow. Leave incision open to air. Pat dry when you get out of the shower. FOLLOW-UP: Please follow up with your surgeon in the orthopedic clinic in 2 weeks from the day of surgery. References: [employer] ([email or web address]) [facility]: [facility] [Primary Care Provider[facility] - 09/10/17 11:30 am Prescriptions: OxyCODONE Immed Rel [Roxicodone 5 MG] 5 mg PO Q4HR PRN 5 Days #15 tablet PRN Reason: Pain (1-5)
[2017-09-14] MEDS ORDERED: FLUOROURACIL APPL TP SCH (09:00)
[2017-09-14 11:15] VITALS: BP 119/72
--- NOTE | 2017-09-14 12:15 | Discharge Summary ---
- NOTES TO OUTPATIENT PROVIDER Notes to Outpatient Provider: f/u with PCP in one week. start taking Coumadin 4mg Po Daily and go for PT / INR in 2 days. 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 (2) Status post kyphoplasty Priority: Secondary Status: Acute (3) Afib Priority: Secondary Status: Chronic Qualifiers: Atrial fibrillation type: paroxysmal Qualified Code(s): I48.0 - Paroxysmal atrial fibrillation (4) Hyperlipidemia Priority: Secondary Status: Chronic Qualifiers: Hyperlipidemia type: unspecified Qualified Code(s): E78.5 - Hyperlipidemia , unspecified (5) Gout Priority: Secondary Status: Chronic Qualifiers: Gout site: unspecified site Gout etiology: unspecified cause Chronicity: chronic Presence of tophus: without tophus Qualified Code(s): M1A.9XX0 - Chronic gout, unspecified, without tophus (tophi) (6) CAD (coronary artery disease) Priority: Secondary Status: Chronic Qualifiers: Coronary Disease-Associated Artery/Lesion type: bypass graft [place] vs. transplanted heart: [place] heart Associated angina: without angina Qualified Code(s): I25.810 - Atherosclerosis of coronary artery bypass graft(s) without angina pectoris Hospital course: Mr. Sanders is a 81 year old male w/ pmh of CAD - CABG 2009, pacemaker, [place], afib on coumadin, blood clots presents with 5/10 aching pain that starts on his right iliac crest and radiates to his paraspinal lumbar region. On 08/17/2016 patient was setting up a grill when he felt like he may have twisted his back. He woke up the next morning with this aching pain. Pain is positionally relieved by laying his left side, and extension of his lumbar. Pain is worsened with flexion and standing, and palpation. Pt was admitted here for severe low back pain. MRI lumbar spine shows acute L1, L4 and L5 superior endplate compression fractures, moderate to severe central spinal canal stenosis at L4/5. Pt was evaluated by Spine surgeon and recommend kyphoplasty. Pt was cleared by Card fr surgery due to his extensive cardiac history. Pt had Kyphoplasty of L1,L4 and L5 on 09/13/17. Post opertiavly pt has been doing well. Ortho cleared him to resume coumadin for his A fib. So started him on Coumadin at 4 mg and recommend to go for PT / INR in 2 days. So will d/c him home in stable condition. - Time Spent with Patient Total time spent providing and/or coordinating discharge services: - Discharge Medications Prescriptions: OxyCODONE Immed Rel [Roxicodone 5 MG] 5 mg PO Q4HR PRN 5 Days #15 tablet PRN Reason: Pain (1-5) Home Medications: Allopurinol [Zyloprim 100 MG] 100 mg PO DAILY 09/07/17 [History] Aspirin [Lo-Dose Aspirin EC] 81 mg PO DAILY 09/07/17 [History] Atorvastatin Calcium [Lipitor] 10 mg PO HS 09/07/17 [History] Betamethasone Carmenza 0.1% Crm [Valisone 0.1%] 1 appl TP QMWF 09/07/17 [History] Cholecalciferol (D-3) [Vitamin D] 1,000 unit PO DAILY 09/07/17 [History] Diclofenac Sodium 4 gm TP BID PRN 09/07/17 [History] Finasteride [Proscar] 5 mg PO DAILY 09/07/17 [History] Nitroglycerin [Nitrostat] 0.4 mg SL PER PKG DI PRN 09/07/17 [History] Fluorouracil [Carac] 1 appl TP DAILY 09/08/17 [History] GuaiFENesin/Dextromethorphan [Robitussin/Dm] 10 ml PO Q4HR PRN 09/08/17 [History ] Warfarin [Coumadin] 4 mg PO MO 09/08/17 [History] OxyCODONE Immed Rel [Roxicodone 5 MG] 5 mg PO Q4HR PRN 5 Days #15 tablet [Rx] Allergies/Adverse Reactions: 3 Allergy/AdvReac Type Severity Reaction Status Date / Time Penicillins Allergy Rash Verified 09/07/17 13:52 Date of admission: 09/07/17 22:42 Primary care physician: [facility] Consults: 09/08/17 21:50 Consult to Cardiology [CONS] Routine Comment: Consulting Provider: Cardiology Deborah Reason for Consult: Preop clearance for kyphoplasty; CAD/CABG, A.fib on Coumadin Call Completed: No 09/13/17 21:02 Consult to Occupational Therapy [CONS] Routine Comment: Evaluate, develop and implement POC Reason for Consult: No bending, lifting or twisting, log roll when getting out of bed Does patient have active BEDREST order?: No Is patient medically & hemodynamically stable?: Yes Patient assessed for mobility or mobilized this visit?: No Consult to Physical Therapy [CONS] Routine Comment: Evaluate, develop and implement POC Reason for Consult: Postoperative rehabilitation Does patient have active BEDREST order?: No Is patient medically & hemodynamically stable?: Yes Patient assessed for mobility or mobilized this visit?: No Consult to Commercial Title Examiner [CONS] Routine Reason for SW Consult: Postoperative rehabilitation - Constitutional Vitals: Temp Pulse Resp BP Pulse Ox 98.7 F 70 16 119/72 96 09/14/17 11:11 09/14/17 11:11 09/14/17 11:11 09/14/17 11:11 09/14/17 11:11 General appearance: Present: A&O X 3, answers questions appropriately - Head Head exam: Present: atraumatic, normal inspection - Neck Neck exam general surgery: Present: supple - Respiratory Respiratory exam: Present: decreased breath sounds. Absent: rales, respiratory distress, rhonchi, wheezes - Cardiovascular Cardiovascular exam: Present: RRR, +S1, +S2. Absent: tachycardia - GI/Abdominal GI/Abdominal exam: Present: normal bowel sounds, soft. Absent: rebound, rigid, tenderness - Extremities Exam Extremities exam: Absent: calf tenderness, pedal edema, tenderness - Back Exam Back exam: Absent: CVA tenderness (L), CVA tenderness (R) - Psychiatric Psychiatric exam: Present: normal affect, normal mood - Skin Skin exam: Absent: rash - Patient Status Disposition: Home, Self-Care Condition: Good Overall status at discharge: patient is back to baseline - Discharge Instructions Follow Up With: DALY,PCP [Primary Care Provider] - 09/10/17 11:30 am - VTE Documentation of Mechanical Device: Intermittent pneumatic compression device
== END 2017-09-14 14:25 | disposition home or self-care (01) | DRG 478 ==
LOC: 3NENU → SUATTDRO 22:42 → 3BNU 09-08 08:00 → 3NENU 09-10 17:52 → 3BNU 09-10 18:11 → 3NENU 09-13 03:44
PROVIDERS: ADMIT Family Medicine; ATTEND Internal Medicine